=== PATIENT | male | born 1965 | race Caucasian/White ===

== ENCOUNTER 2016-08-17 18:26 | Emergency (ER) | payer MEDICARE ==
[~2016-08-17] VITALS: Ht 180.3 cm; Wt 96.2 kg
[~2016-08-17 18:26] MED LIST: ASPI81TA57 PO; DICL75TA2 PO; FERR325C PO; LORA5SOL51 PO; OMEP20CA12 PO; PNT40TEC PO; SUCR1TAB PO; TRAM50TA2 PO
--- NOTE | 2016-08-17 19:05 | ED Upper Extremity ---
General Chief Complaint: Laceration Stated Complaint: R HAND PINKY FINGER LAC Source: patient Exam Limitations: no limitations History of Present Illness Time seen by provider: 19:48 Initial Comments To ER with a laceration to the right pinky finger secondary to a crush injury. He got this shut in a cattle chute. Onset: just prior to arrival Severity: mild Pain/Injury Location: right 5th finger Modifying Factors: Worse With Movement Allergies and Home Medications Allergies Coded Allergies: morphine (Verified Allergy, Severe, 08/17/16) carvedilol (Verified Adverse Reaction, Mild, 10/17/13) Gave pt. headache Home Medications Ferrous Sulfate 325 ( 65 )Mg Capsule.sa, 325 ( PO BID for 30 Days, Ref 1 Prescribed by: GINNY ERVIN on 10/19/13 1612 Fluticasone Propionate 9.9 Ml [place].susp, 9.9 ML NS BID, (Reported) Loratadine 5 Mg/5 Ml Solution, 10 MG PO DAILY PRN for CONGESTION, (Reported) Pantoprazole Sodium 40 Mg Tab, 40 MG PO BIDAC, #60 Ref 1 Prescribed by: GINNY ERVIN on 10/19/13 1612 Sucralfate 1 G Tablet, 1 G PO Q6H for 30 Days, Ref 1 Prescribed by: GINNY ERVIN on 10/19/13 1612 Constitutional: see HPI EENTM: see HPI Respiratory: no symptoms reported Cardiovascular: no symptoms reported Genitourinary: no symptoms reported Musculoskeletal: no symptoms reported Skin: see HPI Psychiatric/Neurological: No Symptoms Reported Past Pzlnwqy-Tivqng-Jzcepb Hx Patient Social History Recent Foreign Travel: No Contact w/Someone Who Travel: No Immunizations Up To Date Date of Pneumonia Vaccine: Oct 18, 2007 Respiratory Hx Respiratory Disorders: Yes (home cpap does not uses) Respiratory Disorders: Sleep Apnea, Emphysema Reproductive System Hx Reproductive Disorders: No Sexually Transmitted Disease: No HIV/AIDS: No Genitourinary Hx Genitourinary Disorders: No Gastrointestinal Gastrointestinal Disorders: Gastroesophageal Reflux Musculoskeletal Musculoskeletal Disorders: Degenerate Disk Disease, Arthritis, Back Injury, Chronic Back Pain, Fractures Endocrine Hx Endocrine Disorders: No HEENT HEENT Disorders: Tinnitis Loss of Vision: Denies Hearing Impairment: Hard of Hearing, Bilateral Hearing Aide Cancer Hx Cancer: No Psychosocial Behavioral Health Disorders: Anxiety Integumentary HX Skin/Integumentary Disorder: No Family Medical History Family Medial History: Family history: Arthritis 19 FATHER Family history: Hypertension 19 FATHER Headache 19 FATHER 19 MOTHER G8 BROTHER G8 SISTER Hearing loss 19 FATHER Visual impairment 19 MOTHER No Family History of: Abdominal aortic aneurysm Tim's disease Alcoholism Aphasia Cancer Cancer of colon Cataract Chest pain Congenital heart disease Congestive heart failure Cystic fibrosis Dementia Dysphagia Family history: Allergy Family history: Alzheimer's disease Family history: Asthma Family history: Breast disease Family history: Cardiovascular disease Family history: Coronary thrombosis Family history: Diabetes mellitus Family history: Gastrointestinal disease Family history: Glaucoma Family history: Osteoporosis Family history: Thyroid disorder Heart disease Hereditary disease History of - anemia History of - disorder History of - respiratory disease History of drug abuse Human immunodeficiency virus (HIV) seropositivity Hypercholesterolemia Infertile Kidney disease Malignant neoplasm of lung Myocardial infarction Parkinson's disease Prostate cancer Psychotic disorder Seizure disorder Stroke Tuberculosis Physical Exam Vital Signs Vital Sign - Last 12Hours 08/17/16 19:01 Temp 98.2 Pulse 73 Resp 16 B/P (MAP) 125/76 Pulse Ox 98 O2 Delivery Room Air Capillary Refill : General Appearance: WD/WN, no apparent distress HEENT: PERRL/EOMI, normal ENT inspection Neck: non-tender, full range of motion Respiratory: normal breath sounds, no respiratory distress, no accessory muscle use Gastrointestinal: normal bowel sounds, non tender, soft Shoulder: normal inspection, non-tender Elbow/Forearm: normal inspection, non-tender, Right Wrist: Yes normal inspection, Yes non-tender Hand: Right, laceration ( several irregular irregular laceration to the palmar surface of the right fifth finger) Neurologic/Tendon: normal sensation, normal motor functions, normal tendon functions Neurologic/Psychiatric: alert, normal mood/affect, oriented x 3 Skin: normal color, warm/dry Laceration Repair : Wound Location: Upper Extremities Wound Length (cm): 1.5 Wound's Depth, Shape: sub Q Wound Explored: clean Betadine Prep?: Yes Anesthesia: 1% Lidocaine Volume Anesthetic (ccs): 4 Suture: Prolene Suture Size: 4-0 Other Closure Supply: Wound Adhesive Number of Sutures: 6 Layer Closure?: 1 Number Deep Layer Sutures: 0 Progress Digital block done using 5 L of 1 percent lidocaine without epinephrine. Wound then irrigated with Betadine/saline solution and scrubbed with the same. No visualized tendon deficit. He is able to fully flex the finger. This was then closed with 6 simple interrupted sutures size 4-0 Prolene. Progress/Results/Core Measures Results/Orders My Orders Orders - LANI HOUSER APRN Dipht,Pertuss(Acell),Tet Adult (Boostrix (08/17/16 19:15) Hand, Left, 3 Views (08/17/16 19:11) Finger(S) (08/17/16 19:11) Lidocaine 1% Injection (Xylocaine 1% Inj (08/17/16 19:30) Lidocaine 1% Injection (Xylocaine 1% Inj (08/17/16 19:24) Medications Given in ED Current Medications Medications Dose Ordered Sig/Anderson Route Start Time Stop Time Status Last Admin Dose Admin Diphtheria/ Tetanus/Acell Pertussis 0.5 ml ONCE ONCE IM 08/17/16 19:15 08/17/16 19:16 DC 08/17/16 19:16 0.5 ML Lidocaine HCl 5 ml ONCE ONCE INJ 08/17/16 19:30 08/17/16 19:31 DC 08/17/16 19:32 5 ML Vital Signs/I&O Vital Sign - Last 12Hours 08/17/16 08/17/16 08/17/16 19:01 19:16 19:32 Temp 98.2 98.2 98.2 Pulse 73 Resp 16 B/P (MAP) 125/76 Pulse Ox 98 O2 Delivery Room Air Departure Impression Impression: Primary Impression: Finger laceration Disposition: 01 HOME, SELF-CARE Condition: Stable Departure-Patient Inst. Decision time for Depature: 19:04 Referrals: EBONY MIKE DO (PCP) Primary Care Physician BNOY ACUÑA (Family) Primary Care Physician Patient Instructions: Laceration Repair With Stitches (DC) Add. Discharge Instructions: 1. Change the dressing tomorrow evening, replacing it with a nonadherent Telfa dressing and gauze roll changing this dressing daily for the next 2-3 days, then switch to a simple Band-Aid.. Keep it dry. Starting tomorrow evening you may wash it gently with soap and water daily. You do not need to apply any antibiotic ointment. Keep this covered with a Band-Aid at all times. Return to ER for any sign of infection such as redness or swelling or drainage from the wound. Antibiotics as directed. 2. Take the antibiotics with food as they may upset her stomach. Scripts Amoxicillin/Potassium Clav (Augmentin 875-125 Tablet) 1 Each Tablet 1 EACH PO BID, #10 TAB Prov: LANI HOUSER APRN 08/17/16 LANI HOUSER APRN August 17, 2016 19:05
[2016-08-17] MEDS ORDERED: FLUT9.9S NS (19:09)
[2016-08-17] MEDS ORDERED: TETANUS,DIPTH,PERTUSS P/F (BOOSTRIX) 0.5 ML VIAL IM ONE (19:15)
[2016-08-17] MEDS ORDERED: LIDOCAINE 1% INJ 20 ML (XYLOCAINE) VIAL ONE (19:24)
[2016-08-17] MEDS ORDERED: LIDOCAINE 1% INJ 20 ML (XYLOCAINE) VIAL INJ ONE (19:30)
--- NOTE | 2016-08-17 19:39 | Diagnostic Imaging Report ---
INDICATION: Laceration to the fifth digit. FINDINGS: 3 views of the left fifth digit demonstrate no fracture, dislocation or foreign body. IMPRESSION: Negative left fifth digit. Incidental note is made of a metallic foreign body overlying the space between the fourth and third metacarpals. Dictated by: Dictated on workstation # [id number]
[2016-08-17] MEDS ORDERED: AMOX-358 PO (19:52)
--- NOTE | 2016-08-17 19:54 | Diagnostic Imaging Report ---
INDICATION: Laceration to the fifth digit. FINDINGS: Three views of the hand demonstrate a metallic foreign body overlying the space between the necks of the third and fourth metacarpals. This is along the plantar aspect. The fifth digit appears normal. IMPRESSION: There is a metallic foreign body between the third and fourth metacarpals. Dictated by: Dictated on workstation # [id number]
[2016-08-17 19:59] VITALS: BP 125/76
== END 2016-08-17 19:59 | disposition home or self-care (01) ==
LOC: EDUNIT# 18:26 → ER 18:29
DX: S61.216A Laceration without foreign body of right little finger without damage to nail, initial encounter (principal); Z23 Encounter for immunization; J43.9 Emphysema, unspecified; W23.0XXA Caught, crushed, jammed, or pinched between moving objects, initial encounter; Y92.79 Other farm location as the place of occurrence of the external cause; Y99.8 Other external cause status
CPT/HCPCS: 12002; 73130; 73140; 90715

== ENCOUNTER → 2018-08-29 | Outpatient (CLI) | payer MEDICARE ==
[~2018-08-29] MED LIST changes: +AMOX-358 PO; +FLUT9.9S NS
--- NOTE | 2018-08-29 12:53 | Diagnostic Imaging Report ---
PROCEDURE: CT abdomen and pelvis without contrast. TECHNIQUE: Multiple contiguous axial images were obtained through the abdomen and pelvis without the use of intravenous contrast. Auto Exposure Controls were utilized during the CT exam to meet ALARA standards for radiation dose reduction. INDICATION: Worsening left lower quadrant abdominal pain. COMPARISON: CT of the abdomen and pelvis performed on 10/18/2013. FINDINGS: Absence of intravenous contrast decreases sensitivity for detection of focal lesions and vascular pathology. LOWER THORAX: Mild basilar subsegmental atelectasis. Visualized heart is normal in size. LIVER: Normal. GALLBLADDER: Normal CT appearance. BILE DUCTS: No biliary ductal dilatation. SPLEEN: There is mild splenomegaly, with the splenic length measuring approximately 14.8 cm. No focal splenic lesion is appreciated. PANCREAS: Normal. No pancreatic ductal dilatation. ADRENAL GLANDS: No nodules. KIDNEYS AND URETERS: No hydronephrosis. No nephroureterolithiasis. The visualized ureters are normal. STOMACH AND BOWEL: There is a moderate hiatal hernia, which appears to have increased in size since the prior exam. No bowel obstruction. No inflammatory changes. APPENDIX: Normal. PELVIC ORGANS/BLADDER: Bladder is normal. Prostate gland is normal in size. PERITONEUM AND RETROPERITONEUM: No pneumoperitoneum. No abdominal free fluid or loculated collection. LYMPH NODES: No lymphadenopathy. VESSELS: Abdominal aorta is nonaneurysmal. ABDOMINAL WALL: Unremarkable. BONES: Mild degenerative changes involve the spine. No acute osseous abnormality. IMPRESSION: No acute abdominal or pelvic pathology. No findings to account for the patient's symptoms. Mild splenomegaly. The degree of splenic enlargement is less than was demonstrated on prior exam performed in 2014. Moderate hiatal hernia, increased in size compared to the prior exam. Dictated by: Dictated on workstation # [id number]
== END ==
LOC: RAD 11:53
PROVIDERS: ATTEND Nurse Practitioner Family
DX: K44.9 Diaphragmatic hernia without obstruction or gangrene (principal); R16.1 Splenomegaly, not elsewhere classified
CPT/HCPCS: 74176

== ENCOUNTER → 2019-08-21 | Outpatient (CLI) | payer MEDICARE ==
[~2019-08-21] MED LIST changes: +CATHETER FLUSH 10 ML SYR IV PRN; +HOLD METFORMIN - RECEIVED CONTRAST 20 ML VIAL IV SCH; +IOHEXOL 350 MG/ML 100 ML (OMNIPAQUE 350) VIAL IV ONE; +NS 100 ML (IVPB) BAG IV ONE
[2019-08-21 09:19] LABS: CREATININE SERUM 0.85 MG/DL (0.60-1.30); GFR ESTIMATED > 60
[2019-08-21 09:20] LABS: BUN/CREATININE RATIO 12
--- NOTE | 2019-08-21 11:10 | Diagnostic Imaging Report ---
CT of the neck and chest with contrast. Indication: Breathing problems, right tonsillar mass. Contiguous axial sections were taken from the midportion of the skull to the lung apex following the administration of intravenous contrast. Sagittal coronal reconstructed images were also obtained. Subsequent additional images of the thorax were performed as well with sagittal coronal reconstruction images also. By history, the patient has had recent direct visualization procedure. Reportedly, there was a soft tissue mass behind the right tonsil. On this study however there is no mass or abscess within either tonsillar fossa. There is also clinical concern regarding an enlarged cervical lymph node on the right. A jose was placed over the area of concern. There is no mass or adenopathy identified in this area. The right submandibular gland is in this region and the right submandibular gland does appear to be larger than the left. The right submandibular gland measures 2.3 x 2.4 x 2.6 maximum transverse AP and longitudinal dimensions. The left submandibular gland measures 1.0 x 2.2 x 1.9 cm. The prominence of the right submandibular submandibular gland could be secondary to inflammation/infection but there is no distortion of the periglandular fat to suggest an acute abnormality. Even so, clinical followup is recommended. There is no sign of obstructive calculus involving the submandibular gland either. There is no other mass or adenopathy involving the neck. The subglottic portion of the tracheal air shadow does seem narrowed but there is no mass in this area either. The thyroid gland is generally unremarkable. The images through the skull base show no acute abnormality of the visualized brain. There is mild bilateral maxillary and ethmoid sinusitis. The images through the thorax show the heart size is at the upper limits of normal but stable when compared to 10/18/2013. A few coronary artery calcifications appear to have developed in the interval since the prior study. The aorta is not abnormally dilated and there is no sign of dissection. The pulmonaries are not well opacified and consequently difficult to assess for pulmonary embolus. There is no definite pulmonary embolus identified. There is no mediastinal or hilar adenopathy. The lungs are generally clear. There is no sign of failure, pneumonia or pleural effusion to indicate an acute abnormality. There is no parenchymal lung mass noted either. The large hiatal hernia seen on the prior study is again evident and no different. The images through the upper abdomen also show that the spleen is enlarged but similar in size to the prior exam. The liver is of lower density than usually seen and this does suggest fatty metamorphosis. The bone windows are unremarkable for fracture or for destructive lesion. Impression: 1. There is no mass or abscess in either tonsillar fossa. 2. There is no mass or adenopathy involving the right neck. However the right submandibular gland is much more prominent than left. While there is no distortion of the periglandular fat the possibility that there is inflammation/infection of the right submandibular gland should certainly be considered. 3. There is no acute cardiopulmonary abnormality noted. 4. The large hiatal hernia seen previously is again evident and no different. 5. There is mild bilateral ethmoid and maxillary sinusitis. Dictated by: Dictated on workstation # [id number]
== END ==
LOC: RAD 08:46
PROVIDERS: ATTEND Otolaryngology Otolaryngology/Facial Plastic Surgery
DX: K44.9 Diaphragmatic hernia without obstruction or gangrene (principal); J32.2 Chronic ethmoidal sinusitis; J32.0 Chronic maxillary sinusitis; R59.0 Localized enlarged lymph nodes; R06.9 Unspecified abnormalities of breathing
CPT/HCPCS: 36415; 70491; 71260; 82565; 84520

== ENCOUNTER 2019-08-27 09:47 | Outpatient (RCR) | payer MEDICARE ==
[~2019-08-27] VITALS: Ht 180.3 cm; Wt 94.5 kg
[~2019-08-27 09:47] MED LIST changes: -ALLO300T2 PO; -ASPI-586 PO; -ATOR20TA66 PO; -DICL50TA6 PO; -GLUC-174 PO; -HYDR-83 PO; -IRON1TAB89 PO; -LIDO30JE3 PO; -LORA10TA7 PO; -PANT40TA3 PO; -SUCR1TAB36 PO
[2019-08-27] MEDS ORDERED: GLUC-174 PO (13:11)
[2019-08-27] MEDS ORDERED: ATOR20TA66 PO (13:11)
[2019-08-27] MEDS ORDERED: ASPI-586 PO (13:11)
[2019-08-27] MEDS ORDERED: PANT40TA3 PO (13:11)
[2019-08-27] MEDS ORDERED: IRON1TAB89 PO (13:11)
[2019-08-27] MEDS ORDERED: LORA10TA7 PO (13:11)
[2019-08-27] MEDS ORDERED: DICL50TA6 PO (13:11)
[2019-08-27] MEDS ORDERED: ALLO300T2 PO (13:11)
[2019-08-27] MEDS ORDERED: SUCR1TAB36 PO (13:11)
== END 2019-08-27 13:50 | disposition home or self-care (01) ==
LOC: PREOP 09:47
PROVIDERS: ATTEND Otolaryngology Otolaryngology/Facial Plastic Surgery
DX: Z01.818 Encounter for other preprocedural examination (principal)

== ENCOUNTER → 2019-08-27 | Outpatient (CLI) | payer MEDICARE ==
[~2019-08-27] MED LIST changes: +ALLO300T2 PO; +ASPI-586 PO; +ATOR20TA66 PO; -CATHETER FLUSH 10 ML SYR IV PRN; +DICL50TA6 PO; -FLUT9.9S NS; +FLUT9.9S NSEACH; +GLUC-174 PO; -HOLD METFORMIN - RECEIVED CONTRAST 20 ML VIAL IV SCH; +HYDR-83 PO; -IOHEXOL 350 MG/ML 100 ML (OMNIPAQUE 350) VIAL IV ONE; +IRON1TAB89 PO; +LIDO30JE3 PO; +LORA10TA7 PO; -NS 100 ML (IVPB) BAG IV ONE; +PANT40TA3 PO; +SUCR1TAB36 PO
== END ==
LOC: LABNPT 08:43
PROVIDERS: ATTEND Otolaryngology Otolaryngology/Facial Plastic Surgery
DX: Z01.812 Encounter for preprocedural laboratory examination (principal); Z20.828 Contact with and (suspected) exposure to other viral communicable diseases
CPT/HCPCS: 87635

== ENCOUNTER 2019-08-30 06:36 | Day surgery (SDC) | payer MEDICARE ==
[2019-08-30] VITALS (11 sets, daily range): BP systolic 85–127; BP diastolic 54–85
[~2019-08-30] VITALS: Ht 180.3 cm; Wt 94.5 kg
[~2019-08-30 06:36] MED LIST changes: +ALLO300T2 PO; +ASPI-586 PO; +ATOR20TA66 PO; +DICL50TA6 PO; +GLUC-174 PO; +IRON1TAB89 PO; +LORA10TA7 PO; +PANT40TA3 PO; +SUCR1TAB36 PO
[2019-08-30] MEDS: LACTATED RINGERS 1,000 ML IV PRN ×2 (07:48→09:55)
[2019-08-30 08:04] LABS: BASOPHILS % (AUTO) 1 % (0-10); EOSINOPHILS # (AUTO) 0.3 10^3/uL (0.0-0.3); EOSINOPHILS % (AUTO) 5 % (0-10); HEMATOCRIT 48 % (40-54); HEMOGLOBIN 17.1 G/DL (13.3-17.7); LYMPHOCYTES # (AUTO) 1.5 X 10^3 (1.0-4.0); LYMPHOCYTES % (AUTO) 28 % (12-44); MEAN CORPUSCULAR HEMOGLOBIN 31 PG (25-34); MEAN CORPUSCULAR HGB CONC 36 G/DL (32-36); MEAN CORPUSCULAR VOLUME 87 FL (80-99); MEAN PLATELET VOLUME 9.3 FL (7.4-10.4); MONOCYTES # (AUTO) 0.6 X 10^3 (0.0-1.0); MONOCYTES % (AUTO) 11 % (0-12); NEUTROPHILS % (AUTO) 56 % (42-75); PLATELET COUNT 182 10^3/uL (130-400); RED CELL DISTRIBUTION WIDTH 13.1 % (10.0-14.5); WHITE BLOOD COUNT 5.4 10^3/uL (4.3-11.0)
--- NOTE | 2019-08-30 08:16 | Diagnostic Imaging Report ---
INDICATION: Preop for throat biopsy. TIME OF EXAM: 7:35 AM No prior chest radiograph available for comparison. FINDINGS: The heart size is normal. Patient appears to have a large hiatal hernia. The lungs are clear. The pulmonary vascularity is normal. No infiltrates, effusion or pneumothorax is seen. IMPRESSION: Large hiatal hernia. No acute cardiopulmonary process is detected. Dictated by: Dictated on workstation # [id number]
[2019-08-30 08:19] LABS: BUN/CREATININE RATIO 12; CALCIUM 8.8 MG/DL (8.5-10.1); CARBON DIOXIDE 24 MMOL/L (21-32); CHLORIDE 105 MMOL/L (98-107); CREATININE SERUM 0.86 MG/DL (0.60-1.30); GFR ESTIMATED > 60; GLUCOSE 105 MG/DL (70-105); POTASSIUM 3.7 MMOL/L (3.6-5.0); SODIUM 141 MMOL/L (135-145)
--- NOTE | 2019-08-30 08:19 | Progress Note-Pre Operative ---
Pre-Operative Progress Note H&P Reviewed The H&P was reviewed, patient examined and no changes noted. 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
[2019-08-30] MEDS ORDERED: LIDOCAINE/EPI 1%-1:100,000 (XYLOCAINE) 20ML ONE (08:38)
[2019-08-30] MEDS ORDERED: MIDAZOLAM 2 MG/2 ML (VERSED) VIAL ONE ×2 (08:42→17:11)
[2019-08-30] MEDS ORDERED: fentaNYL INJECTION 100 MCG/2 ML AMP ONE ×2 (08:42→17:12)
[2019-08-30] MEDS ORDERED: DEXAMETHASONE 10 MG/ML (DECADRON) 1 ML VIAL ONE (08:49)
[2019-08-30] MEDS ORDERED: ONDANSETRON 4 MG/2 ML (SDV) Z0FRAN ONE (08:49)
[2019-08-30] MEDS ORDERED: ROCURONIUM 10 MG/ML 5 ML SYRINGE IV ONE (08:49)
[2019-08-30] MEDS ORDERED: proPOfol 200 MG/20 ML (DIPRIVAN) VIAL IV ONE ×4 (08:49→18:14)
[2019-08-30] MEDS ORDERED: LIDOCAINE PF 2% 5 ML (XYLOCAINE) VIAL ONE (08:50)
[2019-08-30] MEDS ORDERED: SEVOFLURANE (ULTANE) 15 ML INHAL SOLN ONE ×4 (09:12→09:33)
[2019-08-30] MEDS ORDERED: GLYCOPYRROLATE 0.2 MG/ML (ROBINUL) 2 ML VIAL ONE (09:34)
[2019-08-30] MEDS ORDERED: NEOSTIGMINE 3 MG/3 ML VIAL ONE (09:34)
--- NOTE | 2019-08-30 09:41 | Progress Note-Post Operative ---
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 Specimen(s) collected/removed biopsies-right tonsil-to path BONY GODFREY MD Aug 30, 2019 09:41
[2019-08-30] MEDS ORDERED: PROMETHAZINE INJ 25 MG/ML (PHENERGAN) AMP IV PRN (09:45)
[2019-08-30] MEDS ORDERED: ACETAMINOPHEN 325 MG TABLET PO PRN (09:45)
[2019-08-30] MEDS ORDERED: HYDROcodone/APAP 5 MG/325 MG (LORTAB) TAB PO PRN (09:45)
[2019-08-30] MEDS ORDERED: HYDR-83 PO (11:39)
[2019-08-30] MEDS ORDERED: LIDO30JE3 PO (11:39)
--- NOTE | 2019-08-30 13:59 | Anesthesia-General Post-Op ---
General Patient Condition Mental Status/LOC: Same as Preop Cardiovascular: Satisfactory Nausea/Vomiting: Absent Respiratory: Satisfactory Pain: Controlled Complications: Absent Post Op Complications Complications None Follow Up Care/Instructions Patient Instructions None needed. Anesthesia/Patient Condition Patient Condition Patient is doing well, no complaints, stable vital signs, no apparent adverse anesthesia problems. No complications reported per nursing. AMANDA OCAMPO CRNA Aug 30, 2019 13:59
[2019-08-30] MEDS ORDERED: PROPOFOL INJECTION 0 ML IV ONE (17:12)
[2019-08-30] MEDS ORDERED: KETAMINE/NaCl 50 MG/5 ML SYRINGE (ED ONLY) ONE (17:34)
[2019-08-31] MEDS ORDERED: LIDOCAINE/EPI 1%-1:100,000 (XYLOCAINE) 20ML ONE (07:30)
== END 2019-08-30 12:12 | disposition home or self-care (01) ==
LOC: SDC 06:36
PROVIDERS: ATTEND Otolaryngology Otolaryngology/Facial Plastic Surgery
DX: C09.9 Malignant neoplasm of tonsil, unspecified (principal); F17.220 Nicotine dependence, chewing tobacco, uncomplicated; E78.5 Hyperlipidemia, unspecified; J43.9 Emphysema, unspecified; G47.33 Obstructive sleep apnea (adult) (pediatric); M06.9 Rheumatoid arthritis, unspecified; K21.9 Gastro-esophageal reflux disease without esophagitis; Z79.899 Other long term (current) drug therapy; Z79.82 Long term (current) use of aspirin; Z11.2 Encounter for screening for other bacterial diseases
CPT/HCPCS: 36415; 71046; 80048; 85025; 87081; 88305; 88331; 88341; 88342; 93005

== ENCOUNTER 2020-02-08 07:35 | Outpatient (RCR) | payer MEDICARE ==
[2019-12-18 14:39] LABS: BUN/CREATININE RATIO 25; CREATININE SERUM 0.83 MG/DL (0.60-1.30); GFR ESTIMATED > 60
[~2020-02-08 07:35] MED LIST changes: +ACHD5005 PO; +LIDO30JE3 PO; -PANT40TA3 PO; +PANT40TA52 PO
== END 2020-02-25 | disposition home or self-care (01) ==
LOC: ONC 07:35
PROVIDERS: ATTEND Radiology Radiation Oncology
DX: C09.9 Malignant neoplasm of tonsil, unspecified (principal); D50.9 Iron deficiency anemia, unspecified; K27.9 Peptic ulcer, site unspecified, unspecified as acute or chronic, without hemorrhage or perforation; M15.9 Polyosteoarthritis, unspecified; E66.9 Obesity, unspecified; M54.5 Low back pain
CPT/HCPCS: 77300; 77301; 77333; 77334; 77336; 77338; 77386; 82565; 84520; 99204

== ENCOUNTER 2020-03-27 14:13 | Outpatient (RCR) | payer MEDICARE | END 2020-06-25 | disposition home or self-care (01) | LOC: ONC 14:13 | PROVIDERS: ATTEND Radiology Radiation Oncology | DX: C09.9 Malignant neoplasm of tonsil, unspecified (principal); D50.9 Iron deficiency anemia, unspecified; K27.9 Peptic ulcer, site unspecified, unspecified as acute or chronic, without hemorrhage or perforation; M15.9 Polyosteoarthritis, unspecified; E66.9 Obesity, unspecified; M54.5 Low back pain ==

== ENCOUNTER → 2020-05-12 | Outpatient (CLI) | payer MEDICARE ==
[~2020-05-12] MED LIST changes: +CATHETER FLUSH 10 ML SYR IV PRN; +HOLD METFORMIN - RECEIVED CONTRAST 20 ML VIAL IV SCH; +IOHEXOL 350 MG/ML 100 ML (OMNIPAQUE 350) VIAL IV ONE; +NS 100 ML (IVPB) BAG IV ONE
[2020-05-12 09:33] LABS: BUN/CREATININE RATIO 12; CREATININE SERUM 0.81 MG/DL (0.60-1.30); GFR ESTIMATED > 60
--- NOTE | 2020-05-12 10:50 | Diagnostic Imaging Report ---
EXAMINATION: CT Neck and Chest with intravenous contrast. TECHNIQUE: Multiple contiguous axial images were obtained through the neck and chest after the uneventful administration of intravenous contrast. All CT scans use one or more of the following dose optimizing techniques: automated exposure control, MA and/or KvP adjustment based on a patient size and exam type, or iterative reconstruction. HISTORY: Throat cancer. COMPARISON: 08/21/2019. FINDINGS: Neck CT: There are postsurgical changes of right neck dissection. There is fat stranding and soft tissue thickening involving the deep spaces of the neck and fascial planes likely related to prior surgery and/or radiation therapy. Right internal jugular vein remains patent. Previously seen enlarged lymph nodes are now absent. There is no lymphadenopathy in the neck on today's exam. There is submucosal edema and edema in the prevertebral space likely related to prior radiation. An area of hypoattenuation in the region of the right tonsillar pillar is likely related to edema from prior radiation. No measurable mass is seen. Vessels of the neck demonstrate normal course and caliber. The visualized airway is widely patent. The base of the skull and the temporal bones are normal. Limited views of the brain including the cerebellum and brainstem are normal. The limited view of the [place] is unremarkable. The visualized portions of the orbits are normal. The spinal canal is normal in caliber. Intervertebral disk heights are normal. Neural foramina are normal. Chest CT: There is no edema or pneumonia. No pleural effusion. No pneumothorax. No suspicious nodules. There is no axillary or supraclavicular lymphadenopathy. There is no mediastinal lymphadenopathy. Heart size is normal. There are no coronary artery calcifications. No pericardial effusion. Aorta is normal in caliber. There is a large hiatal hernia with portions of the pancreas and splenic artery contained within the hernia sac. Limited views of the upper abdomen are unremarkable. There are no suspicious osseous lesions. IMPRESSION: 1. Postsurgical changes of right neck dissection with edema and fat stranding in the deep spaces of the neck and associated with the right tonsillar pillar consistent with post therapy changes. No measurable recurrent mass is seen. 2. No metastatic disease is seen in the chest. Dictated by: Dictated on workstation # [id number]
== END ==
LOC: RAD 08:53
PROVIDERS: ATTEND Radiology Radiation Oncology
DX: C09.9 Malignant neoplasm of tonsil, unspecified (principal); C14.0 Malignant neoplasm of pharynx, unspecified
CPT/HCPCS: 36415; 70491; 71260; 82565; 84520

== ENCOUNTER 2020-07-03 13:25 | Outpatient (RCR) | payer MEDICARE ==
[~2020-07-03 13:25] MED LIST changes: -CATHETER FLUSH 10 ML SYR IV PRN; -HOLD METFORMIN - RECEIVED CONTRAST 20 ML VIAL IV SCH; -IOHEXOL 350 MG/ML 100 ML (OMNIPAQUE 350) VIAL IV ONE; -NS 100 ML (IVPB) BAG IV ONE
== END 2020-10-01 | disposition home or self-care (01) ==
LOC: ONC 13:25
PROVIDERS: ATTEND Radiology Radiation Oncology
DX: C09.9 Malignant neoplasm of tonsil, unspecified (principal); D50.9 Iron deficiency anemia, unspecified; K27.9 Peptic ulcer, site unspecified, unspecified as acute or chronic, without hemorrhage or perforation; M15.9 Polyosteoarthritis, unspecified; E66.9 Obesity, unspecified; M54.5 Low back pain
CPT/HCPCS: 99213

== ENCOUNTER → 2020-10-02 | Outpatient (CLI) | payer MEDICARE | LOC: EDSTATUS 09:49 → ONC 09:50 | PROVIDERS: ATTEND Radiology Radiation Oncology | DX: C09.9 Malignant neoplasm of tonsil, unspecified (principal); E66.9 Obesity, unspecified | CPT/HCPCS: 99213 ==

== ENCOUNTER → 2021-03-26 | Outpatient (CLI) | payer MEDICARE | LOC: ONC 08:49 | PROVIDERS: ATTEND Radiology Radiation Oncology | DX: C09.9 Malignant neoplasm of tonsil, unspecified (principal); D50.9 Iron deficiency anemia, unspecified; K27.9 Peptic ulcer, site unspecified, unspecified as acute or chronic, without hemorrhage or perforation; M15.9 Polyosteoarthritis, unspecified; E66.9 Obesity, unspecified; M54.50 Low back pain, unspecified | CPT/HCPCS: 99213 ==

== ENCOUNTER → 2022-10-21 | Outpatient (CLI) | payer MEDICARE ==
[~2022-10-21] MED LIST changes: +CATHETER FLUSH 10 ML SYR IV PRN; +HOLD METFORMIN - RECEIVED CONTRAST 20 ML VIAL IV SCH; +IOHEXOL 350 MG/ML 100 ML (OMNIPAQUE 350) VIAL IV ONE; +NS 100 ML (IVPB) BAG IV ONE
[2022-10-21 06:31] LABS: CREATININE SERUM 0.99 MG/DL (0.60-1.30)
--- NOTE | 2022-10-21 10:04 | Diagnostic Imaging Report ---
PROCEDURE: CT neck soft tissue with contrast. TECHNIQUE: Multiple contiguous axial images were obtained through the neck after the administration of contrast. Auto Exposure Controls were utilized during the CT exam to meet ALARA standards for radiation dose reduction. INDICATION: Right-sided tonsillar cancer. Follow-up. COMPARISON: 05/12/2020. Findings: Postsurgical changes are again seen of right neck dissection and mass resection from the right tonsillar region. No mass recurrence is seen in the right tonsillar bed. No new lymphadenopathy. Stable atrophy of both submandibular glands, representing posttreatment changes. No prevertebral or retropharyngeal fluid collections. The laryngeal structures are symmetric and unremarkable. The parotid glands are unremarkable. The thyroid has a normal appearance. The vascular structures the neck demonstrate no evidence of high-grade stenosis on this nondedicated exam. The visualized lung apices are clear. Small shotty lymph nodes are seen in the visualized mediastinum measuring up to 0.6 cm in short axis. The visualized intracranial contents demonstrate no evidence of pathologic intracranial enhancement or intracranial mass effect. Visualized orbital contents are unremarkable. Mucosal thickening is seen in the left ethmoid sinuses. The mastoids and middle ears are clear. The patient is edentulous. No acute osseous abnormality in the cervical spine. Impression: 1. Stable posttreatment changes in the neck. No evidence of mass recurrence or new lymphadenopathy in the neck. Small shoddy lymph nodes are noted in the visualized superior mediastinum, similar to the prior exam. Recommend continued follow-up as indicated. 2. Small amount of mucosal thickening in the left ethmoid sinuses. Dictated by: Dictated on workstation # [id number]
== END ==
LOC: RAD 06:02
PROVIDERS: ATTEND Otolaryngology Otolaryngology/Facial Plastic Surgery
DX: J32.2 Chronic ethmoidal sinusitis (principal); Z85.89 Personal history of malignant neoplasm of other organs and systems
CPT/HCPCS: 36415; 70491; 82565; 84520